=== PATIENT | female | born 1985 | race Caucasian/White ===

== ENCOUNTER 2018-02-01 04:30 | Emergency (ER) | payer OTHER ==
[~2018-02-01] VITALS: Ht 182.9 cm; Wt 83.9 kg
[~2018-02-01 04:30] MED LIST: TRINATE TABLET1 TAB
[2018-02-01] MEDS ORDERED: HYDROCODONE-AP1 EAC6 PO (05:18)
[2018-02-01] MEDS ORDERED: FLEXERIL PO (05:18)
[2018-02-01] MEDS ORDERED: MEDROLDOSEPACK PO (05:18)
[2018-02-01] MEDS ORDERED: DICLOFENAC SOD50 M1 PO (05:19)
[2018-02-01 06:45] VITALS: BP 130/74
== END 2018-02-01 06:50 | disposition home or self-care (01) ==
LOC: M.ERS 04:30
DX: M54.41 Lumbago with sciatica, right side (principal); F41.9 Anxiety disorder, unspecified